=== PATIENT | female | born 2000 | race Caucasian/White ===

== ENCOUNTER 2019-12-28 01:24 | Emergency (ER) | payer BC ==
[~2019-12-28] VITALS: Ht 162.6 cm; Wt 77.3 kg
[2019-12-28 01:32] VITALS: TEMP 98.7
[2019-12-28] MEDS ORDERED: NEXPLANON68 MG ID (01:35)
[2019-12-28 02:01] LABS: BASO # 0.1 (0.0-0.2); BASO % 1.1 % (0.0-2.0); EOS # 0.2 (0.0-0.7); EOS % 1.5 % (0-4.0); GRAN # 5.2 (1.4-6.5); GRAN % 53.5 % (42.2-75.2); HEMATOCRIT 46.5 % (37.0-47.0); HEMOGLOBIN 15.4 g/dl (12.5-16.0); LYMPH # 3.2 (1.2-3.4); LYMPH % 33.1 % (20.0-51.0); MEAN CELL VOLUME 88 fl (80.0-100.0); MEAN CORPUSCULAR HEMOGLOBIN 29 pg (27.0-31.0); MEAN CORPUSCULAR HGB CONC 33 g/dl (33.0-37.0); MEAN PLATELET VOLUME 10.8 fl (7.4-10.4); MONO % 10.2 % (1.7-9.3); PLATELET COUNT 325 K/mm3 (130-400); RED BLOOD COUNT 5.26 M/mm3 (4.10-5.30); REDCELL DISTRIBUTION WIDTH-CV 13.1 % (11.5-14.5)
[2019-12-28 02:32] LABS: ALBUMIN 4.5 gm/dL (3.5-5.0); BILIRUBIN,TOTAL 0.3 mg/dL (0.0-1.0); CALCIUM 9.4 mg/dL (8.4-10.2); CREATININE, serum 0.82 (0.52-1.25); POTASSIUM 3.6 mmol/L (3.4-5.0); TOTAL PROTEIN 7.5 gm/dL (6.4-8.2)
[2019-12-28] MEDS ORDERED: TOPROL XL 25MG25 MG PO (02:40)
[2019-12-28 02:49] VITALS: BP 125/81; PULSE 104
== END 2019-12-28 02:49 | disposition home or self-care (01) ==
LOC: COL.ER 01:24
PROVIDERS: Emergency Medicine
DX: I47.1 Supraventricular tachycardia (principal)
CPT/HCPCS: J7030